=== PATIENT | female | born 1960 | race Two or more races ===

== ENCOUNTER 2021-06-07 20:44 | Emergency (ER) | payer SELFPAY ==
[~2021-06-07] VITALS: Ht 165.1 cm; Wt 64.0 kg
[2021-06-07 20:49] VITALS: BP 122/63
== END 2021-06-07 22:05 | disposition left against medical advice (07) ==
LOC: ER 20:44
DX: R07.89 Other chest pain (principal); I25.2 Old myocardial infarction; Z88.0 Allergy status to penicillin
CPT/HCPCS: 93005; 99283

== ENCOUNTER 2021-06-08 08:52 | Emergency (ER) | payer MEDICAID ==
[~2021-06-08] VITALS: Ht 165.1 cm; Wt 70.0 kg
[2021-06-08] MEDS ORDERED: ASPIRIN 81MG TABLET PO ONE (09:30)
[2021-06-08] MEDS ORDERED: MAGNESIUM/ALUMINUM HYDROXIDE/SIMETHICONE 30ML UDC PO ONE (09:30)
[2021-06-08 09:43] LABS: BASOPHILS % 0.7 % (0.0-2.0); EOSINOPHILS % 1.6 % (0.0-5.0); HEMATOCRIT. 46.7 % (36.0-48.0); HEMOGLOBIN. 15.9 g/dL (12.0-16.0); MEAN CORPUSCULAR HEMOGLOBIN 31.1 pg (28.0-32.0); MEAN CORPUSCULAR VOLUME 91.5 fL (81.0-99.0); MEAN PLATELET VOLUME 7.3 fl (7.4-10.4); MONOCYTES % 6.3 % (2.0-8.0); NEUTROPHILS % 67.4 % (40.0-76.0); PLATELET 202 x1000/uL (130-400); RED CELL DISTRIBUTION WIDTH 15.1 % (11.6-14.6)
[2021-06-08 10:07] LABS: *AMPHETAMINES SCREEN URINE NEGATIVE (NEGATIVE); *BARBITURATES SCREEN URINE NEGATIVE (NEGATIVE); *BENZODIAZEPINES SCREEN URINE NEGATIVE (NEGATIVE); *COCAINE SCREEN URINE NEGATIVE (NEGATIVE)
[2021-06-08 10:08] LABS: CANNABINOID URINE SCREEN NEGATIVE (NEGATIVE); METHADONE URINE SCREEN NEGATIVE (NEGATIVE); OPIATES URINE SCREEN PRESUMTIVE POSITIVE (NEGATIVE); PHENCYCLIDINE URINE SCREEN NEGATIVE (NEGATIVE)
[2021-06-08 11:08] LABS: CHLORIDE 105 mEq/L (98-107)
[2021-06-08] MEDS ORDERED: OLANZAPINE 5MG TABLET PO SCH (12:30)
[2021-06-08] MEDS ORDERED: DIPHENHYDRAMINE 50MG/ML VIAL IV ONE (12:30)
[2021-06-08] MEDS ORDERED: LORAZEPAM 2MG/ML CPJ IV ONE (15:00)
[2021-06-08 19:53] LABS: ETHANOL BLOOD < 10 mg/dL
[2021-06-08 20:34] LABS: CLARITY URINE CLEAR (CLEAR); COLOR URINE YELLOW (YELLOW); KETONES URINE NEGATIVE (NEGATIVE); LEUKOCYTE ESTERASE URINE NEGATIVE (NEGATIVE); NITRITE URINE NEGATIVE (NEGATIVE); OCCULT BLOOD URINE NEGATIVE (NEGATIVE); PROTEIN URINE NEGATIVE (NEGATIVE); SPECIFIC GRAVITY URINE 1.011 (1.005-1.030); UROBILINOGEN URINE 0.2 E.U./dL (0.2-1.0)
[2021-06-09] MEDS ORDERED: QUETIAPINE FUMARATE 50MG TABLET PO SCH (09:00)
[2021-06-09] MEDS: QUETIAPINE FUMARATE 50MG TABLET PO SCH ×2 (09:46→21:24)
[2021-06-09] MEDS ORDERED: PERMETHRIN 5% CREAM 60GM TOP ONE (18:45)
[2021-06-09 23:53] VITALS: BP 128/80
== END 2021-06-09 23:52 | disposition short-term general hospital (02) ==
LOC: ER 08:52
DX: R45.851 Suicidal ideations (principal); R07.89 Other chest pain; M79.7 Fibromyalgia; I25.2 Old myocardial infarction; Z88.0 Allergy status to penicillin; Z20.822 Contact with and (suspected) exposure to COVID-19
CPT/HCPCS: 36415; 71045; 80053; 80305; 80307; 80320; 80329; 81003; 84484; 85025; 93005; 96374; 96375; 99285; C9803; J1200; J2060; U0003; U0005; Z7610; G0480

== ENCOUNTER 2021-09-30 23:35 | Emergency (ER) | payer MEDICAID ==
[~2021-09-30] VITALS: Ht 154.9 cm; Wt 60.0 kg
[2021-10-01 01:18] LABS: CHLORIDE 113 mEq/L (98-107)
[2021-10-01 01:19] LABS: BASOPHILS % 0.4 % (0.0-2.0); EOSINOPHILS % 2.4 % (0.0-5.0); HEMATOCRIT. 43.9 % (36.0-48.0); LYMPHOCYTES % 30.9 % (20.0-50.0); MEAN CORPUSCULAR HEMOGLOBIN 30.4 pg (28.0-32.0); MEAN CORPUSCULAR VOLUME 89.2 fL (81.0-99.0); MEAN PLATELET VOLUME 6.9 fl (7.4-10.4); MONOCYTES % 5.8 % (2.0-8.0); NEUTROPHILS % 60.5 % (40.0-76.0); PLATELET 250 x1000/uL (130-400); RED BLOOD CELL COUNT 4.92 mill/uL (4.2-5.4)
[2021-10-01 01:22] LABS: ETHANOL BLOOD 83 mg/dL
[2021-10-01 04:50] LABS: *AMPHETAMINES SCREEN URINE NEGATIVE (NEGATIVE); *BARBITURATES SCREEN URINE NEGATIVE (NEGATIVE); *BENZODIAZEPINES SCREEN URINE NEGATIVE (NEGATIVE); *COCAINE SCREEN URINE NEGATIVE (NEGATIVE)
[2021-10-01 04:51] LABS: CANNABINOID URINE SCREEN NEGATIVE (NEGATIVE); METHADONE URINE SCREEN NEGATIVE (NEGATIVE); OPIATES URINE SCREEN NEGATIVE (NEGATIVE); PHENCYCLIDINE URINE SCREEN NEGATIVE (NEGATIVE)
[2021-10-01] MEDS ORDERED: ACETAMINOPHEN 325MG TABLET PO ONE (17:45)
[2021-10-01] MEDS: BUSPIRONE HCL 10MG TABLET PO SCH (21:00)
[2021-10-01] MEDS: QUETIAPINE FUMARATE 50MG TABLET PO SCH (23:07)
[2021-10-02] MEDS: QUETIAPINE FUMARATE 50MG TABLET PO SCH (09:24)
[2021-10-02] MEDS: BUSPIRONE HCL 10MG TABLET PO SCH (09:24)
[2021-10-02 15:06] VITALS: BP 103/73
== END 2021-10-02 15:21 ==
LOC: ER 23:35
DX: R44.0 Auditory hallucinations (principal); Z88.0 Allergy status to penicillin; Z20.822 Contact with and (suspected) exposure to COVID-19
CPT/HCPCS: 71045; 87635; 99285

== ENCOUNTER 2022-06-26 15:48 | Emergency (ER) | payer MEDICAID, OTHER ==
[~2022-06-26] VITALS: Ht 162.6 cm; Wt 73.0 kg
[2022-06-26 15:51] VITALS: BP 148/88
[2022-06-26 17:02] LABS: CLARITY URINE CLEAR (CLEAR); COLOR URINE YELLOW (YELLOW); KETONES URINE NEGATIVE (NEGATIVE); LEUKOCYTE ESTERASE URINE TRACE (NEGATIVE); NITRITE URINE NEGATIVE (NEGATIVE); OCCULT BLOOD URINE NEGATIVE (NEGATIVE); PROTEIN URINE NEGATIVE (NEGATIVE)
[2022-06-26 17:11] LABS: *AMPHETAMINES SCREEN URINE NEGATIVE (NEGATIVE); *BARBITURATES SCREEN URINE NEGATIVE (NEGATIVE); *BENZODIAZEPINES SCREEN URINE NEGATIVE (NEGATIVE); *COCAINE SCREEN URINE NEGATIVE (NEGATIVE); CANNABINOID URINE SCREEN NEGATIVE (NEGATIVE); METHADONE URINE SCREEN NEGATIVE (NEGATIVE); OPIATES URINE SCREEN NEGATIVE (NEGATIVE); PHENCYCLIDINE URINE SCREEN NEGATIVE (NEGATIVE)
[2022-06-26 17:38] LABS: CHLORIDE 108 mEq/L (98-107)
[2022-06-26 17:39] LABS: BASOPHILS % 0.8 % (0.0-2.0); EOSINOPHILS % 1.3 % (0.0-5.0); HEMATOCRIT. 45.5 % (36.0-48.0); HEMOGLOBIN. 15.7 g/dL (12.0-16.0); LYMPHOCYTES % 20.9 % (20.0-50.0); MEAN CORPUSCULAR HEMOGLOBIN 30.6 pg (28.0-32.0); MEAN CORPUSCULAR VOLUME 88.5 fL (81.0-99.0); MONOCYTES % 8.2 % (2.0-8.0); NEUTROPHILS % 68.8 % (40.0-76.0); RED BLOOD CELL COUNT 5.15 mill/uL (4.2-5.4); RED CELL DISTRIBUTION WIDTH 14.8 % (11.6-14.6)
[2022-06-26 17:53] LABS: MEAN PLATELET VOLUME 7.4 fl (7.4-10.4); PLATELET 274 x1000/uL (130-400)
[2022-06-26] MEDS ORDERED: ONDANSETRON 4MG ODT PO ONE (19:00)
[2022-06-26] MEDS ORDERED: ACETAMINOPHEN 325MG TABLET PO ONE (19:00)
[2022-06-26] MEDS ORDERED: FAMOTIDINE 20MG TABLET PO ONE (19:00)
== END 2022-06-26 19:39 | disposition home or self-care (01) ==
LOC: ER 15:48
DX: K52.9 Noninfective gastroenteritis and colitis, unspecified (principal); R03.0 Elevated blood-pressure reading, without diagnosis of hypertension; F15.10 Other stimulant abuse, uncomplicated; G40.909 Epilepsy, unspecified, not intractable, without status epilepticus; R94.31 Abnormal electrocardiogram [ECG] [EKG]; Z98.890 Other specified postprocedural states; Z59.00 Homelessness unspecified
CPT/HCPCS: 36415; 74176; 80053; 80305; 81003; 83690; 85025; 93005; 99285; Q0162